=== PATIENT | male | born 1935 | race Caucasian/White ===

== ENCOUNTER → 2016-03-29 | Outpatient (CLI) | payer MEDICARE, OTHER ==
[~2016-03-29] MED LIST: AMIT PO; AMIT50TA3 PO; CALC600T37 PO; CARV12.544 PO; CHOL20007 OR; CLOP75TA28 PO; FARXIGA PO; FURO40TA4 PO; GABA300C8 PO; GLIP-116 PO; INSUINJ37 SUBCUT; KETO2CRE TOP; LEVO75TA6 PO; LINA290C OR; LIOT5TAB PO; LISI-275 PO; SIMV-13 PO; TEMA30CA PO; [UNRECOGNIZED DRUG - CODE] TOP
== END | disposition home or self-care (01) ==
LOC: Rad HDHVI 12:03
PROVIDERS: ATTEND Internal Medicine Cardiovascular Disease
DX: Z01.818 Encounter for other preprocedural examination (principal); I51.7 Cardiomegaly; R07.89 Other chest pain; R06.02 Shortness of breath; I34.2 Nonrheumatic mitral (valve) stenosis; I35.0 Nonrheumatic aortic (valve) stenosis; I25.2 Old myocardial infarction; Z95.0 Presence of cardiac pacemaker; R53.1 Weakness
CPT/HCPCS: 71020; 93306

== ENCOUNTER → 2016-04-15 | Outpatient (CLI) | payer MEDICARE, OTHER ==
[2016-04-15 16:08] LABS: Basophils # (auto) 0 uL; Basophils % (auto) 0.5 % (0.0-2.0); Eosinophils # (auto) 0.2 uL; Eosinophils % (auto) 2.8 % (0.0-7.0); Hematocrit 45.2 % (41.0-53.0); Hemoglobin 14.7 g/dL (13.5-17.5); Lymphocytes # (auto) 1.8 uL; Lymphocytes % (auto) 31.3 % (10.0-50.0); Mean Corpuscular Hemoglobin 29.4 pg (28.0-32.0); Mean Corpuscular Hgb Conc. 32.6 g/dL (32.0-36.0); Mean Corpuscular Volume 90.3 fL (80.0-100.0); Mean Platelet Volume 8.1 fL (7.4-10.4); Monocytes # (auto) 0.5 uL; Monocytes % (auto) 8.9 % (0.0-12.0); Neutrophils # (auto) 3.2 uL; Neutrophils % (auto) 56.5 % (37.0-80.0); Platelet Count (auto) 340 10^3/uL (140-450); Red Cell Distribution Width 13.9 % (11.6-16.0); White Blood Cell 5.6 10^3/uL (4.4-10.8)
[2016-04-15 16:19] LABS: Urine Bilirubin Negative (Negative); Urine Blood Negative /uL (Negative); Urine Color Yellow (Yellow); Urine Ketone Negative (Negative); Urine Nitrite Negative (Negative); Urine Urobilinogen Normal (Negative); Urine pH 6.5 (5.0-8.0)
[2016-04-15 16:27] LABS: Urine Glucose 1+ mg/dL (Normal)
[2016-04-15 16:28] LABS: Calcium 9.4 mg/dL (8.5-10.1)
[2016-04-15 16:40] LABS: Albumin 3.7 g/dL (3.4-5.0); Bilirubin, Direct 0.2 mg/dL (0-0.2)
[2016-04-15 16:49] LABS: Bilirubin, Total 0.5 mg/dL (0.2-1.0); Total Protein 7.9 g/dL (6.4-8.2)
[2016-04-15 17:19] LABS: B-Type Natriuretic Peptide 107.4 pg/mL (0-100); Temperature: 22.9 C (20.0-25.0)
[2016-04-15 17:23] LABS: BUN/Creatinine Ratio 27.4
[2016-04-15 20:20] LABS: Potassium 4.3 mmol/L (3.5-5.1)
== END | disposition home or self-care (01) ==
LOC: Rad HDHVI 10:06
PROVIDERS: ATTEND Internal Medicine Cardiovascular Disease
DX: I10 Essential (primary) hypertension (principal); E78.00 Pure hypercholesterolemia, unspecified; K74.1 Hepatic sclerosis; E11.9 Type 2 diabetes mellitus without complications; R97.20 Elevated prostate specific antigen [PSA]; R53.81 Other malaise; E03.9 Hypothyroidism, unspecified; D64.9 Anemia, unspecified; E55.9 Vitamin D deficiency, unspecified; N39.0 Urinary tract infection, site not specified
CPT/HCPCS: 36415; 80048; 80061; 80076; 81003; 82306; 83036; 83880; 84153; 84403; 84443; 85025

== ENCOUNTER → 2016-10-13 | Outpatient (CLI) | payer MEDICARE ==
[~2016-10-13] MED LIST changes: +CYANOCOBALAMIN (B-12) 1000 MCG/1 ML VIAL IM ONE; +CYANOCOBALAMIN (B-12) 1000 MCG/1 ML VIAL ONE; +GABA-497 PO; -GABA300C8 PO
[2016-10-13 15:00] VITALS: BP 151/74
[2016-10-13 16:31] LABS: Albumin 3.4 g/dL (3.4-5.0); BUN/Creatinine Ratio 21.9; Calcium 8.3 mg/dL (8.5-10.1); Magnesium 2.3 mg/dL (1.6-2.6); Potassium 4.5 mmol/L (3.5-5.1)
[2016-10-13 16:35] LABS: Bilirubin, Total 0.6 mg/dL (0.2-1.0); Total Protein 6.7 g/dL (6.4-8.2)
[2016-10-13 16:40] LABS: Basophils # (auto) 0 uL; Basophils % (auto) 0.4 % (0.0-2.0); Eosinophils # (auto) 0.1 uL; Eosinophils % (auto) 1.5 % (0.0-7.0); Hematocrit 42.5 % (41.0-53.0); Hemoglobin 14.4 g/dL (13.5-17.5); Lymphocytes # (auto) 1.4 uL; Mean Corpuscular Hemoglobin 31.7 pg (28.0-32.0); Mean Corpuscular Hgb Conc. 33.9 g/dL (32.0-36.0); Mean Corpuscular Volume 93.4 fL (80.0-100.0); Mean Platelet Volume 7.9 fL (7.4-10.4); Monocytes # (auto) 0.5 uL; Neutrophils # (auto) 3.2 uL; Neutrophils % (auto) 61.1 % (37.0-80.0); Platelet Count (auto) 174 10^3/uL (140-450); Red Cell Distribution Width 15.1 % (11.6-16.0); White Blood Cell 5.2 10^3/uL (4.4-10.8)
[2016-10-13 17:00] VITALS: BP 165/60
[2016-10-13 17:12] LABS: B-Type Natriuretic Peptide 113.49 pg/mL (0-100)
[2016-10-13 17:27] LABS: Temperature: 23.7 C (20.0-25.0)
== END | disposition home or self-care (01) ==
LOC: CHF HDHVI 15:05
PROVIDERS: ATTEND Internal Medicine Cardiovascular Disease
DX: I11.0 Hypertensive heart disease with heart failure (principal); I50.9 Heart failure, unspecified; D64.9 Anemia, unspecified; E83.42 Hypomagnesemia; E11.9 Type 2 diabetes mellitus without complications
CPT/HCPCS: 36415; 80053; 83036; 83735; 83880; 85025; 93005; 96372; G0463; J3420

== ENCOUNTER → 2017-01-04 | Outpatient (CLI) | payer MEDICARE ==
[~2017-01-04] MED LIST changes: -CYANOCOBALAMIN (B-12) 1000 MCG/1 ML VIAL IM ONE; -CYANOCOBALAMIN (B-12) 1000 MCG/1 ML VIAL ONE; -KETO2CRE TOP; +KETO2CRE4 TOP
== END | disposition home or self-care (01) ==
LOC: Rad HDHVI 11:31
PROVIDERS: ATTEND Internal Medicine Cardiovascular Disease
DX: J90 Pleural effusion, not elsewhere classified (principal); I70.0 Atherosclerosis of aorta
CPT/HCPCS: 71020

== ENCOUNTER 2017-01-06 01:11 | Emergency (ER) | payer MEDICARE ==
[~2017-01-06] VITALS: Ht 170.2 cm; Wt 77.1 kg
[2017-01-06 03:15] LABS: Basophils # (auto) 0 uL; Basophils % (auto) 0.3 % (0.0-2.0); Eosinophils # (auto) 0.1 uL; Eosinophils % (auto) 2.5 % (0.0-7.0); Hematocrit 36.5 % (41.0-53.0); Hemoglobin 12.2 g/dL (13.5-17.5); Lymphocytes # (auto) 1.6 uL; Lymphocytes % (auto) 29.3 % (10.0-50.0); Mean Corpuscular Hemoglobin 31.4 pg (28.0-32.0); Mean Corpuscular Hgb Conc. 33.5 g/dL (32.0-36.0); Mean Corpuscular Volume 93.7 fL (80.0-100.0); Mean Platelet Volume 8.5 fL (6.9-10.8); Monocytes # (auto) 0.6 uL; Monocytes % (auto) 10.4 % (0.0-12.0); Neutrophils # (auto) 3.1 uL; Neutrophils % (auto) 57.5 % (37.0-80.0); Platelet Count (auto) 209 10^3/uL (140-450); Red Cell Distribution Width 14.6 % (11.8-14.3); White Blood Cell 5.5 10^3/uL (4.4-10.8)
[2017-01-06] MEDS ORDERED: SODIUM CHLORIDE 0.9% 1,000 ML IV ONE (03:15)
[2017-01-06 03:26] LABS: Albumin 3.3 g/dL (3.4-5.0); BUN/Creatinine Ratio 15.6; Calcium 9.1 mg/dL (8.5-10.1); Potassium 3.8 mmol/L (3.5-5.1)
[2017-01-06 03:29] LABS: Bilirubin, Total 0.7 mg/dL (0.2-1.0)
[2017-01-06 03:37] LABS: Salicylate 6.8 mg/dL (2.8-20.0)
[2017-01-06 03:40] LABS: Acetaminophen 3.7 ug/mL (10-30)
[2017-01-06] MEDS ORDERED: SODIUM CHLORIDE 0.9% 500 ML IV ONE (03:45)
[2017-01-06 03:53] LABS: Urine Bilirubin Negative (Negative); Urine Blood TRACE /uL (Negative); Urine Color Yellow (Yellow); Urine Glucose 1+ mg/dL (Normal); Urine Ketone Negative (Negative); Urine Nitrite Negative (Negative); Urine RBC 4 /hpf (0 - 3); Urine Squamous Epithelial Cell FEW /hpf (<5); Urine pH 6.5 (5.0-8.0)
[2017-01-06 04:58] VITALS: BP 115/55
== END 2017-01-06 05:16 | disposition home or self-care (01) ==
LOC: EDBD 01:11 → ER 01:13
DX: J40 Bronchitis, not specified as acute or chronic (principal); E11.65 Type 2 diabetes mellitus with hyperglycemia; R53.1 Weakness; I25.810 Atherosclerosis of coronary artery bypass graft(s) without angina pectoris; I13.0 Hypertensive heart and chronic kidney disease with heart failure and stage 1 through stage 4 chronic kidney disease, or unspecified chronic kidney disease; I50.9 Heart failure, unspecified; N18.9 Chronic kidney disease, unspecified; E11.22 Type 2 diabetes mellitus with diabetic chronic kidney disease; E78.5 Hyperlipidemia, unspecified; I25.2 Old myocardial infarction; E07.9 Disorder of thyroid, unspecified; R42 Dizziness and giddiness; Z95.0 Presence of cardiac pacemaker; Z95.1 Presence of aortocoronary bypass graft; Z79.899 Other long term (current) drug therapy
CPT/HCPCS: 36415; 71010; 80053; 80307; 80320; 80329; 81001; 85025; 93005; 96360

== ENCOUNTER → 2017-02-15 | Outpatient (CLI) | payer MEDICARE ==
[~2017-02-15] MED LIST changes: -GABA-497 PO; +GABA300C10 PO; +IOHEXOL 350 MG/ML 100ML IJ ONE
[2017-02-15 11:45] VITALS: BP 139/76
[2017-02-15 12:10] VITALS: BP 157/59
[2017-02-15 12:24] VITALS: BP 157/59
== END | disposition home or self-care (01) ==
LOC: Rad HDHVI 11:26
PROVIDERS: ATTEND Internal Medicine Cardiovascular Disease
DX: I65.23 Occlusion and stenosis of bilateral carotid arteries (principal); I65.01 Occlusion and stenosis of right vertebral artery; I63.9 Cerebral infarction, unspecified
CPT/HCPCS: 70498; 82565; 96374; G0463; Q9967

== ENCOUNTER → 2017-02-22 | Outpatient (CLI) | payer MEDICARE ==
[~2017-02-22] MED LIST changes: -IOHEXOL 350 MG/ML 100ML IJ ONE
== END | disposition home or self-care (01) ==
LOC: Rad HDHVI 13:43
PROVIDERS: ATTEND Internal Medicine Cardiovascular Disease
DX: I34.0 Nonrheumatic mitral (valve) insufficiency (principal); I50.23 Acute on chronic systolic (congestive) heart failure; I25.5 Ischemic cardiomyopathy
CPT/HCPCS: 93306; 93926

== ENCOUNTER 2017-03-28 12:08 | Inpatient (IN) | payer MEDICARE ==
[~2017-03-28] VITALS: Ht 177.8 cm; Wt 84.8 kg
[2017-03-28] MEDS ORDERED: ONDANSETRON HCL 4 MG/2 ML VIAL IV ONE (12:30)
[2017-03-28 13:19] LABS: Basophils # (auto) 0 uL; Basophils % (auto) 0.4 % (0.0-2.0); Eosinophils # (auto) 0.1 uL; Eosinophils % (auto) 1.3 % (0.0-7.0); Hematocrit 42.3 % (41.0-53.0); Hemoglobin 14.1 g/dL (13.5-17.5); Lymphocytes # (auto) 1.2 uL; Lymphocytes % (auto) 15.8 % (10.0-50.0); Mean Corpuscular Hemoglobin 31.4 pg (28.0-32.0); Mean Corpuscular Hgb Conc. 33.4 g/dL (32.0-36.0); Mean Corpuscular Volume 93.9 fL (80.0-100.0); Monocytes # (auto) 0.6 uL; Monocytes % (auto) 8.5 % (0.0-12.0); Neutrophils # (auto) 5.5 uL; Platelet Count (auto) 191 10^3/uL (140-450); Red Cell Distribution Width 14.4 % (11.8-14.3); White Blood Cell 7.5 10^3/uL (4.4-10.8)
[2017-03-28 13:33] LABS: INR 0.97 (0.9-1.15); Partial Thromboplastin Time 28.2 sec (22.64-33.71); Prothrombin Time 10.6 sec (9.37-12.3)
[2017-03-28 13:35] LABS: Albumin 3.5 g/dL (3.4-5.0); Amylase 15 U/L (25-115); Anion Gap 2 (5-15); Aspartate Aminotransferase 20 U/L (15-37); BUN/Creatinine Ratio 17.9; Blood Urea Nitrogen 25 mg/dL (7-18); Calcium 9.2 mg/dL (8.5-10.1); Carbon Dioxide 29 mmol/L (21-32); Chloride 106 mmol/L (98-107); GFR African American 63 mL/min; GFR Non-African American 52 mL/min; Glucose 249 mg/dL (74-106); Lipase 53 U/L (73-393); Sodium 137 mmol/L (136-145)
[2017-03-28 13:46] LABS: Alanine Aminotransferase 34 U/L (16-61); Alkaline Phosphatase 105 U/L (45-117); Bilirubin, Total 1.1 mg/dL (0.2-1.0); Total Protein 7.4 g/dL (6.4-8.2)
[2017-03-28] MEDS ORDERED: DEXTROSE (50%) 50ML SYRG IV PRN (15:15)
[2017-03-28] MEDS ORDERED: DOCUSATE SOD 100 MG CAP PO PRN (15:30)
[2017-03-28] MEDS ORDERED: TEMAZEPAM 15 MG CAP PO PRN (15:30)
[2017-03-28] MEDS ORDERED: MORPHINE SULFATE 4 MG/ML SYR/VIAL IV PRN (15:30)
[2017-03-28] MEDS ORDERED: ACETAMINOPHEN 325 MG TAB PO PRN (15:30)
[2017-03-28] MEDS ORDERED: HYDROcodone-ACET 5/325MG TAB PO PRN (15:30)
[2017-03-28] MEDS ORDERED: ONDANSETRON HCL 4 MG/2 ML VIAL IV PRN (15:30)
[2017-03-28] MEDS ORDERED: NITROGLYCERIN 0.4 MG SL TAB SL PRN (15:30)
[2017-03-28] MEDS: FAMOTIDINE 20 MG TAB PO SCH ×2 (16:04→22:33)
[2017-03-28 16:52] LABS: Urine Bacteria NONE SEEN /hpf (None Seen); Urine Blood 1+ /uL (Negative); Urine Specific Gravity 1.022 (1.001-1.035); Urine WBC 6 /hpf (0 - 3)
[2017-03-28] MEDS: InsuLIN REG 1unit/0.01ml Soln (100units/ml) SC SCH ×2 (17:00→22:34)
[2017-03-28] MEDS: ACCU-CHEK COMFORT CURVE STRIP VI SCH ×2 (17:19→22:25)
[2017-03-28] MEDS: glipiZIDE 5 MG TAB PO SCH (18:00)
[2017-03-28] MEDS: MORPHINE SULFATE 4 MG/ML SYR/VIAL IV PRN (18:30)
[2017-03-28] MEDS: LORazepam 2MG/ML-1ML VIAL IV PRN (19:32)
[2017-03-28 22:00] VITALS: BP 144/75
[2017-03-28] MEDS: SODIUM CHLOR 0.9% PF (SALINE LOCK) 10ML VIAL IV SCH (22:32)
[2017-03-28] MEDS: CARVEDILOL 12.5 MG TAB PO SCH (22:33)
[2017-03-28] MEDS: ATORVASTATIN 20 MG TAB PO SCH (22:33)
[2017-03-28] MEDS: CALCIUM CARB 500 MG CHEW TAB PO SCH (22:33)
[2017-03-28] MEDS: GABAPENTIN 100 MG CAP PO SCH (22:33)
[2017-03-28] MEDS: ASCORBIC ACID 500 MG TAB PO SCH (22:34)
[2017-03-29] MEDS: MORPHINE SULFATE 4 MG/ML SYR/VIAL IV PRN (00:24)
[2017-03-29] MEDS: SODIUM CHLOR 0.9% PF (SALINE LOCK) 10ML VIAL IV SCH ×3 (05:18→21:50)
[2017-03-29] MEDS: ACCU-CHEK COMFORT CURVE STRIP VI SCH ×4 (05:37→21:50)
[2017-03-29] MEDS: glipiZIDE 5 MG TAB PO SCH ×2 (05:37→17:27)
[2017-03-29] MEDS: InsuLIN REG 1unit/0.01ml Soln (100units/ml) SC SCH ×4 (05:38→21:57)
[2017-03-29 06:00] VITALS: BP 140/69
[2017-03-29] MEDS: LEVOTHYROXINE SODIUM 25 MCG TAB PO SCH (06:06)
[2017-03-29] MEDS: GABAPENTIN 100 MG CAP PO SCH ×3 (06:06→21:48)
[2017-03-29 06:22] LABS: Basophils # (auto) 0 uL; Basophils % (auto) 0.4 % (0.0-2.0); Eosinophils # (auto) 0.1 uL; Hematocrit 40.6 % (41.0-53.0); Hemoglobin 13.4 g/dL (13.5-17.5); Lymphocytes # (auto) 1.5 uL; Lymphocytes % (auto) 25.5 % (10.0-50.0); Mean Corpuscular Hemoglobin 31.4 pg (28.0-32.0); Mean Corpuscular Hgb Conc. 33.1 g/dL (32.0-36.0); Mean Corpuscular Volume 94.9 fL (80.0-100.0); Monocytes # (auto) 0.6 uL; Monocytes % (auto) 10.6 % (0.0-12.0); Neutrophils # (auto) 3.8 uL; Neutrophils % (auto) 62.5 % (37.0-80.0); Nucleated Red Blood Cells % 0.1 %; Platelet Count (auto) 187 10^3/uL (140-450); Red Blood Cells 4.28 10^6/uL (4.5-5.90); Red Cell Distribution Width 14.3 % (11.8-14.3); White Blood Cell 6.1 10^3/uL (4.4-10.8)
[2017-03-29 06:39] LABS: Albumin 3.3 g/dL (3.4-5.0); BUN/Creatinine Ratio 18.7; Calcium 9.1 mg/dL (8.5-10.1); Potassium 4.5 mmol/L (3.5-5.1)
[2017-03-29 06:42] LABS: Bilirubin, Total 0.9 mg/dL (0.2-1.0); Total Protein 7.1 g/dL (6.4-8.2)
[2017-03-29 09:00] VITALS: BP 170/62
[2017-03-29] MEDS: LOSARTAN POTASSIUM 50 MG TAB PO SCH (09:35)
[2017-03-29] MEDS: CHOLECALCIFEROL (VITD3) 1,000 UNIT TAB PO SCH (09:36)
[2017-03-29] MEDS: FAMOTIDINE 20 MG TAB PO SCH ×2 (09:36→21:48)
[2017-03-29] MEDS: MULTIPLE VITAMIN TAB PO SCH (09:36)
[2017-03-29] MEDS: ZINC SULFATE 220 MG CAP PO SCH (09:36)
[2017-03-29] MEDS: CALCIUM CARB 500 MG CHEW TAB PO SCH ×2 (09:36→21:48)
[2017-03-29] MEDS: ASCORBIC ACID 500 MG TAB PO SCH ×2 (09:36→21:48)
[2017-03-29] MEDS: DULoxetine HCL 30 MG CAP PO SCH (09:37)
[2017-03-29] MEDS: FUROSEMIDE 40 MG TAB PO SCH (09:37)
[2017-03-29] MEDS: CARVEDILOL 12.5 MG TAB PO SCH ×2 (09:38→21:49)
[2017-03-29] MEDS: LORazepam 2MG/ML-1ML VIAL IV PRN ×2 (09:48→21:52)
[2017-03-29 13:00] VITALS: BP 104/48
[2017-03-29 17:00] VITALS: BP 99/57
[2017-03-29 19:15] LABS: INR 0.98 (0.9-1.15); Partial Thromboplastin Time 28.2 sec (22.64-33.71); Prothrombin Time 10.7 sec (9.37-12.3)
[2017-03-29] MEDS: ATORVASTATIN 20 MG TAB PO SCH (21:48)
[2017-03-29 22:00] VITALS: BP 126/46
[2017-03-30 05:21] VITALS: BP 123/60
[2017-03-30] MEDS: GABAPENTIN 100 MG CAP PO SCH ×3 (06:17→22:07)
[2017-03-30] MEDS: LEVOTHYROXINE SODIUM 25 MCG TAB PO SCH (06:18)
[2017-03-30] MEDS: SODIUM CHLOR 0.9% PF (SALINE LOCK) 10ML VIAL IV SCH ×3 (06:18→22:04)
[2017-03-30] MEDS: glipiZIDE 5 MG TAB PO SCH ×2 (06:19→18:05)
[2017-03-30] MEDS: InsuLIN REG 1unit/0.01ml Soln (100units/ml) SC SCH ×4 (06:19→22:36)
[2017-03-30] MEDS: ACCU-CHEK COMFORT CURVE STRIP VI SCH ×4 (06:20→22:00)
[2017-03-30 08:00] VITALS: BP 94/59
[2017-03-30] MEDS ORDERED: ceFAZolin 1GM/50ML 50 ML IV ONE (09:51)
[2017-03-30] MEDS ORDERED: ROCURONIUM 10MG/ML 10ML VIAL IV ONE (09:56)
[2017-03-30] MEDS ORDERED: SUCCINYLCHOLINE CHLORIDE 20 MG/ML 10ML VIAL IV ONE (09:58)
[2017-03-30] MEDS ORDERED: MIDAZOLAM HCL 1MG/1ML-2 ML VIAL ONE (09:59)
[2017-03-30] MEDS: CALCIUM CARB 500 MG CHEW TAB PO SCH ×2 (10:00→22:07)
[2017-03-30] MEDS: ZINC SULFATE 220 MG CAP PO SCH (10:00)
[2017-03-30] MEDS: DULoxetine HCL 30 MG CAP PO SCH (10:00)
[2017-03-30] MEDS: ASCORBIC ACID 500 MG TAB PO SCH ×2 (10:00→22:06)
[2017-03-30] MEDS: CARVEDILOL 12.5 MG TAB PO SCH ×2 (10:00→22:06)
[2017-03-30] MEDS: FUROSEMIDE 40 MG TAB PO SCH (10:00)
[2017-03-30] MEDS: MULTIPLE VITAMIN TAB PO SCH (10:00)
[2017-03-30] MEDS: CHOLECALCIFEROL (VITD3) 1,000 UNIT TAB PO SCH (10:00)
[2017-03-30] MEDS: FAMOTIDINE 20 MG TAB PO SCH ×2 (10:00→22:06)
[2017-03-30] MEDS ORDERED: ETOMIDATE (2MG/ML) 20ML VIAL IV ONE (10:01)
[2017-03-30] MEDS ORDERED: fentaNYL CITRATE 100 MCG/2 ML VL ONE (10:14)
[2017-03-30] MEDS ORDERED: hydrALAZINE HCL 20 MG/ML VL IV PRN (10:15)
[2017-03-30] MEDS ORDERED: ONDANSETRON HCL 4 MG/2 ML VIAL IV ONE (10:15)
[2017-03-30] MEDS ORDERED: NALOXONE HCL 0.4 MG/ML VIAL IV PRN (10:15)
[2017-03-30] MEDS ORDERED: ePHEDrine SULFATE 50 MG/ML AMP IV PRN (10:15)
[2017-03-30] MEDS ORDERED: MORPHINE SULFATE 4 MG/ML SYR/VIAL IV PRN (10:15)
[2017-03-30] MEDS ORDERED: ACCU-CHEK COMFORT CURVE STRIP VI ONE (10:15)
[2017-03-30] MEDS ORDERED: GLYCOPYRROLATE 0.2 MG/ML 1ML VIAL ONE (10:38)
[2017-03-30] MEDS ORDERED: NEOSTIGMINE 1 MG/ML INJ (10mg/10ML VIAL) ONE (10:38)
[2017-03-30 12:00] VITALS: BP 146/76
[2017-03-30] MEDS: LOSARTAN POTASSIUM 50 MG TAB PO SCH (13:03)
[2017-03-30 17:00] VITALS: BP 146/77
[2017-03-30] MEDS: MORPHINE SULFATE 4 MG/ML SYR/VIAL IV PRN (18:05)
[2017-03-30 20:00] VITALS: BP 139/75
[2017-03-30 22:00] VITALS: BP 139/75
[2017-03-30] MEDS: ATORVASTATIN 20 MG TAB PO SCH (22:06)
[2017-03-30] MEDS: LORazepam 2MG/ML-1ML VIAL IV PRN (22:07)
[2017-03-31] MEDS: MORPHINE SULFATE 4 MG/ML SYR/VIAL IV PRN ×2 (02:51→10:42)
[2017-03-31 05:00] VITALS: BP 128/65
[2017-03-31] MEDS: ACCU-CHEK COMFORT CURVE STRIP VI SCH ×2 (06:41→11:30)
[2017-03-31] MEDS: LEVOTHYROXINE SODIUM 25 MCG TAB PO SCH (06:41)
[2017-03-31] MEDS: GABAPENTIN 100 MG CAP PO SCH ×2 (06:41→14:17)
[2017-03-31] MEDS: SODIUM CHLOR 0.9% PF (SALINE LOCK) 10ML VIAL IV SCH ×2 (06:41→14:16)
[2017-03-31] MEDS: glipiZIDE 5 MG TAB PO SCH (06:41)
[2017-03-31] MEDS: InsuLIN REG 1unit/0.01ml Soln (100units/ml) SC SCH ×2 (06:42→13:46)
[2017-03-31 08:00] VITALS: BP 114/72
[2017-03-31] MEDS: CALCIUM CARB 500 MG CHEW TAB PO SCH (09:24)
[2017-03-31] MEDS: CARVEDILOL 12.5 MG TAB PO SCH (09:25)
[2017-03-31] MEDS: FUROSEMIDE 40 MG TAB PO SCH (09:25)
[2017-03-31] MEDS: CHOLECALCIFEROL (VITD3) 1,000 UNIT TAB PO SCH (09:26)
[2017-03-31] MEDS: MULTIPLE VITAMIN TAB PO SCH (09:26)
[2017-03-31] MEDS: DULoxetine HCL 30 MG CAP PO SCH (09:26)
[2017-03-31] MEDS: ASCORBIC ACID 500 MG TAB PO SCH (09:26)
[2017-03-31] MEDS: ZINC SULFATE 220 MG CAP PO SCH (09:27)
[2017-03-31] MEDS: LOSARTAN POTASSIUM 50 MG TAB PO SCH (09:27)
[2017-03-31] MEDS: FAMOTIDINE 20 MG TAB PO SCH (09:27)
[2017-03-31 13:00] VITALS: BP 156/71
[2017-03-31 16:40] VITALS: BP 146/81
== END 2017-03-31 16:40 | disposition home or self-care (01) | DRG 418 ==
LOC: EDBD 12:08 → ER 12:08 → TELE 12:09 → TELE-WESTW 20:31
PROVIDERS: ADMIT Internal Medicine; ATTEND Internal Medicine Cardiovascular Disease
PROC: 0FT44ZZ Resection of Gallbladder, Percutaneous Endoscopic Approach (ICD-10-PCS; principal; 2017-03-30 09:56)
DX: K80.00 Calculus of gallbladder with acute cholecystitis without obstruction (principal); I50.42 Chronic combined systolic (congestive) and diastolic (congestive) heart failure; E11.21 Type 2 diabetes mellitus with diabetic nephropathy; E11.51 Type 2 diabetes mellitus with diabetic peripheral angiopathy without gangrene; I13.0 Hypertensive heart and chronic kidney disease with heart failure and stage 1 through stage 4 chronic kidney disease, or unspecified chronic kidney disease; J98.11 Atelectasis; K76.0 Fatty (change of) liver, not elsewhere classified; I25.10 Atherosclerotic heart disease of native coronary artery without angina pectoris; K44.9 Diaphragmatic hernia without obstruction or gangrene; E03.9 Hypothyroidism, unspecified; E11.65 Type 2 diabetes mellitus with hyperglycemia; E78.5 Hyperlipidemia, unspecified; N40.0 Benign prostatic hyperplasia without lower urinary tract symptoms; N18.3 Chronic kidney disease, stage 3 (moderate); F41.9 Anxiety disorder, unspecified; E66.9 Obesity, unspecified; I70.8 Atherosclerosis of other arteries; J44.9 Chronic obstructive pulmonary disease, unspecified; K40.90 Unilateral inguinal hernia, without obstruction or gangrene, not specified as recurrent; Z95.1 Presence of aortocoronary bypass graft; Z95.0 Presence of cardiac pacemaker; I25.2 Old myocardial infarction; Z83.3 Family history of diabetes mellitus; Z79.4 Long term (current) use of insulin; Z82.49 Family history of ischemic heart disease and other diseases of the circulatory system; Z68.26 Body mass index [BMI] 26.0-26.9, adult
CPT/HCPCS: 36415; 71045; 74176; 76705; 80053; 81001; 82150; 82247; 82962; 83036; 83605; 83690; 83880; 84443; 84484; 85025; 85610; 85730; 86850; 86900; 86901; 87040; 87086; 87088; 87186; 93005; 96374; J0330; J0690; J1815; J2250; J2405

== ENCOUNTER 2017-04-02 12:30 | Emergency (ER) | payer MEDICARE ==
[~2017-04-02] VITALS: Ht 175.3 cm; Wt 90.7 kg
[2017-04-02] MEDS ORDERED: SODIUM CHLORIDE 0.9% 500 ML IVB ONE (13:16)
[2017-04-02 13:41] LABS: Basophils # (auto) 0 uL; Basophils % (auto) 0.3 % (0.0-2.0); Eosinophils # (auto) 0.1 uL; Eosinophils % (auto) 1.4 % (0.0-7.0); Hematocrit 43.2 % (41.0-53.0); Hemoglobin 14.6 g/dL (13.5-17.5); Lymphocytes # (auto) 0.9 uL; Lymphocytes % (auto) 14.8 % (10.0-50.0); Mean Corpuscular Hemoglobin 31.6 pg (28.0-32.0); Mean Corpuscular Hgb Conc. 33.7 g/dL (32.0-36.0); Mean Corpuscular Volume 93.9 fL (80.0-100.0); Monocytes # (auto) 0.5 uL; Monocytes % (auto) 7.6 % (0.0-12.0); Neutrophils # (auto) 4.6 uL; Neutrophils % (auto) 75.9 % (37.0-80.0); Platelet Count (auto) 205 10^3/uL (140-450); Red Cell Distribution Width 13.7 % (11.8-14.3)
[2017-04-02 14:08] LABS: Albumin 3.6 g/dL (3.4-5.0); BUN/Creatinine Ratio 25.5; Bilirubin, Total 1.2 mg/dL (0.2-1.0); Calcium 9.3 mg/dL (8.5-10.1); Magnesium 2.4 mg/dL (1.6-2.6); Potassium 4.4 mmol/L (3.5-5.1); Total Protein 7.9 g/dL (6.4-8.2)
[2017-04-02 14:24] LABS: Urine Bacteria NONE SEEN /hpf (None Seen); Urine Blood TRACE /uL (Negative); Urine Mucus FEW (None Seen); Urine Specific Gravity 1.017 (1.001-1.035); Urine WBC 2 /hpf (0 - 3)
[2017-04-02 14:40] LABS: Alcohol, Urine < 3.0 mg/dL (0-5); Amphetamine Screen, Urine NEGATIVE (NEGATIVE); Barbiturate Scree,Urine NEGATIVE (NEGATIVE); Benzodiazephine Screen, Urine POSITIVE (NEGATIVE); Cannabinoid Screen, Urine NEGATIVE (NEGATIVE); Cocaine Screen, Urine NEGATIVE (NEGATIVE); Opiate Scree,Urine POSITIVE (NEGATIVE); Phencyclidine Screen, Urine NEGATIVE (NEGATIVE)
[2017-04-02 14:40] LABS: INR 0.99 (0.9-1.15); Partial Thromboplastin Time 26.8 sec (22.64-33.71); Prothrombin Time 10.8 sec (9.37-12.3)
[2017-04-02 15:01] VITALS: BP 158/76
[2017-04-02] MEDS ORDERED: ONDANSETRON HCL 4 MG/2 ML VIAL IV ONE (15:30)
== END 2017-04-02 16:14 | disposition home or self-care (01) ==
LOC: EDBD 12:30 → EDUNIT# 12:30 → ER 12:30
DX: E11.65 Type 2 diabetes mellitus with hyperglycemia (principal); K31.84 Gastroparesis; E11.21 Type 2 diabetes mellitus with diabetic nephropathy; I25.2 Old myocardial infarction; I13.0 Hypertensive heart and chronic kidney disease with heart failure and stage 1 through stage 4 chronic kidney disease, or unspecified chronic kidney disease; N18.9 Chronic kidney disease, unspecified; I50.9 Heart failure, unspecified; Z95.1 Presence of aortocoronary bypass graft; Z79.899 Other long term (current) drug therapy; Z90.49 Acquired absence of other specified parts of digestive tract; Z79.4 Long term (current) use of insulin; Z98.61 Coronary angioplasty status; R47.89 Other speech disturbances; R11.2 Nausea with vomiting, unspecified
CPT/HCPCS: 36415; 70450; 71045; 80053; 80307; 81001; 83605; 83735; 84443; 84484; 85025; 85610; 85730; 87040; 87077; 87186; 93005; 94761; 96361; 96374; 99285; J2405; J7030

== ENCOUNTER 2017-04-21 18:10 | Inpatient (IN) | payer MEDICARE ==
[~2017-04-21] VITALS: Ht 177.8 cm; Wt 84.4 kg
[2017-04-21] MEDS ORDERED: ONDANSETRON HCL 4 MG/2 ML VIAL ONE (18:56)
[2017-04-21] MEDS ORDERED: ONDANSETRON HCL 4 MG/2 ML VIAL IV ONE (19:00)
[2017-04-21] MEDS ORDERED: SODIUM CHLORIDE 0.9% 1,000 ML IV ONE (19:00)
[2017-04-21 19:06] LABS: Basophils # (auto) 0 uL; Basophils % (auto) 0.2 % (0.0-2.0); Eosinophils # (auto) 0 uL; Hematocrit 37.1 % (41.0-53.0); Hemoglobin 12.4 g/dL (13.5-17.5); Lymphocytes # (auto) 0.3 uL; Lymphocytes % (auto) 3.9 % (10.0-50.0); Mean Corpuscular Hemoglobin 31.6 pg (28.0-32.0); Mean Corpuscular Hgb Conc. 33.5 g/dL (32.0-36.0); Mean Corpuscular Volume 94.2 fL (80.0-100.0); Monocytes # (auto) 0.2 uL; Monocytes % (auto) 2.9 % (0.0-12.0); Neutrophils # (auto) 7.3 uL; Platelet Count (auto) 185 10^3/uL (140-450); Red Blood Cells 3.94 10^6/uL (4.5-5.90); Red Cell Distribution Width 14.1 % (11.8-14.3); White Blood Cell 7.8 10^3/uL (4.4-10.8)
[2017-04-21 19:18] LABS: INR 1.05 (0.9-1.15); Partial Thromboplastin Time 26.1 sec (22.64-33.71); Prothrombin Time 11.4 sec (9.37-12.3)
[2017-04-21] MEDS ORDERED: PROMETHAZINE HCL 25 MG/ML 1ML IV ONE (19:30)
[2017-04-21 19:42] LABS: Albumin 3.1 g/dL (3.4-5.0); BUN/Creatinine Ratio 17.3; Bilirubin, Total 0.8 mg/dL (0.2-1.0); Calcium 8.7 mg/dL (8.5-10.1); Potassium 4.3 mmol/L (3.5-5.1); Total Protein 7.2 g/dL (6.4-8.2)
[2017-04-21] MEDS ORDERED: ONDANSETRON HCL 4 MG/2 ML VIAL IV PRN (21:30)
[2017-04-21] MEDS ORDERED: DEXTROSE (50%) 50ML SYRG IV PRN (21:30)
[2017-04-21] MEDS ORDERED: NITROGLYCERIN 0.4 MG SL TAB SL PRN (21:30)
[2017-04-21] MEDS ORDERED: ACETAMINOPHEN 500 MG TAB PO PRN (21:30)
[2017-04-21] MEDS ORDERED: MORPHINE SULFATE 4 MG/ML SYR/VIAL IV PRN (21:30)
[2017-04-21] MEDS: GABAPENTIN 300 MG CAP PO SCH (22:00)
[2017-04-21] MEDS: ACCU-CHEK COMFORT CURVE STRIP VI SCH (22:00)
[2017-04-21] MEDS: InsuLIN REG 1unit/0.01ml Soln (100units/ml) SC SCH (22:00)
[2017-04-21 23:45] VITALS: BP 104/59
[2017-04-22] MEDS: TEMAZEPAM 15 MG CAP PO PRN ×2 (01:23→22:21)
[2017-04-22 05:00] VITALS: BP 109/50
[2017-04-22] MEDS: LEVOTHYROXINE SODIUM 25 MCG TAB PO SCH (06:19)
[2017-04-22] MEDS: GABAPENTIN 300 MG CAP PO SCH ×3 (06:19→22:05)
[2017-04-22 06:22] LABS: Basophils # (auto) 0 uL; Basophils % (auto) 0.2 % (0.0-2.0); Eosinophils # (auto) 0 uL; Hematocrit 32.1 % (41.0-53.0); Hemoglobin 10.7 g/dL (13.5-17.5); Lymphocytes # (auto) 0.7 uL; Lymphocytes % (auto) 8.4 % (10.0-50.0); Mean Corpuscular Hemoglobin 31.2 pg (28.0-32.0); Mean Corpuscular Hgb Conc. 33.4 g/dL (32.0-36.0); Mean Corpuscular Volume 93.4 fL (80.0-100.0); Monocytes # (auto) 0.8 uL; Monocytes % (auto) 9.3 % (0.0-12.0); Neutrophils # (auto) 7.3 uL; Neutrophils % (auto) 82.1 % (37.0-80.0); Platelet Count (auto) 171 10^3/uL (140-450); Red Blood Cells 3.44 10^6/uL (4.5-5.90); Red Cell Distribution Width 14.2 % (11.8-14.3); White Blood Cell 8.8 10^3/uL (4.4-10.8)
[2017-04-22 06:32] LABS: BUN/Creatinine Ratio 16.5; Calcium 8.6 mg/dL (8.5-10.1); Potassium 4.2 mmol/L (3.5-5.1)
[2017-04-22] MEDS: ACCU-CHEK COMFORT CURVE STRIP VI SCH ×4 (06:39→22:16)
[2017-04-22] MEDS: InsuLIN REG 1unit/0.01ml Soln (100units/ml) SC SCH ×4 (06:39→22:22)
[2017-04-22 09:20] VITALS: BP 99/55
[2017-04-22] MEDS: CARVEDILOL 12.5 MG TAB PO SCH ×2 (10:00→22:00)
[2017-04-22] MEDS ORDERED: AZITHROMYCIN 500MG/ 250ML 250 ML IV SCH (10:00)
[2017-04-22] MEDS: CLOPIDOGREL BISULFATE 75 MG TAB PO SCH (10:17)
[2017-04-22] MEDS: FUROSEMIDE 40 MG/4 ML VIAL IV SCH (10:18)
[2017-04-22] MEDS: cefTRIAXone 1GM/10ml IVPUSH 10 ML IV SCH (10:18)
[2017-04-22 12:35] VITALS: BP 105/49
[2017-04-22 16:56] VITALS: BP 121/62
[2017-04-22 17:46] LABS: Urine Bacteria FEW /hpf (None Seen); Urine Blood 1+ /uL (Negative); Urine WBC 444 /hpf (0 - 3); Urine WBC Clumps PRESENT /hpf (None Seen)
[2017-04-22] MEDS: HYDROcodone-ACET 5/325MG TAB PO PRN (19:51)
[2017-04-22 20:00] VITALS: BP 107/54
[2017-04-22 22:00] VITALS: BP 107/54
[2017-04-22] MEDS: AMITRIPTYLINE HCL 25 MG TAB PO SCH (22:05)
[2017-04-23 05:00] VITALS: BP 115/54
[2017-04-23 05:41] LABS: Albumin 2.7 g/dL (3.4-5.0); BUN/Creatinine Ratio 18.7; Bilirubin, Total 0.3 mg/dL (0.2-1.0); Calcium 8.8 mg/dL (8.5-10.1); Potassium 4.3 mmol/L (3.5-5.1); Total Protein 6.5 g/dL (6.4-8.2)
[2017-04-23] MEDS: LEVOTHYROXINE SODIUM 25 MCG TAB PO SCH (06:39)
[2017-04-23] MEDS: ACCU-CHEK COMFORT CURVE STRIP VI SCH ×4 (06:39→22:15)
[2017-04-23] MEDS: GABAPENTIN 300 MG CAP PO SCH ×3 (06:39→22:10)
[2017-04-23] MEDS: InsuLIN REG 1unit/0.01ml Soln (100units/ml) SC SCH ×4 (06:48→22:32)
[2017-04-23 09:00] VITALS: BP 135/66
[2017-04-23] MEDS: CARVEDILOL 12.5 MG TAB PO SCH ×2 (10:06→22:10)
[2017-04-23] MEDS: CLOPIDOGREL BISULFATE 75 MG TAB PO SCH (10:06)
[2017-04-23] MEDS: FUROSEMIDE 40 MG/4 ML VIAL IV SCH (10:07)
[2017-04-23] MEDS: cefTRIAXone 1GM/10ml IVPUSH 10 ML IV SCH (10:07)
[2017-04-23 13:00] VITALS: BP 113/63
[2017-04-23] MEDS: HYDROcodone-ACET 5/325MG TAB PO PRN (20:24)
[2017-04-23 21:59] VITALS: BP 134/62
[2017-04-23] MEDS: TEMAZEPAM 15 MG CAP PO PRN (22:10)
[2017-04-23] MEDS: AMITRIPTYLINE HCL 25 MG TAB PO SCH (22:11)
[2017-04-24 05:46] VITALS: BP 122/64
[2017-04-24] MEDS: GABAPENTIN 300 MG CAP PO SCH ×2 (06:38→14:18)
[2017-04-24] MEDS: LEVOTHYROXINE SODIUM 25 MCG TAB PO SCH (06:38)
[2017-04-24] MEDS: ACCU-CHEK COMFORT CURVE STRIP VI SCH ×2 (06:38→12:10)
[2017-04-24] MEDS: InsuLIN REG 1unit/0.01ml Soln (100units/ml) SC SCH ×2 (07:32→12:10)
[2017-04-24 09:00] VITALS: BP 119/66
[2017-04-24] MEDS: cefTRIAXone 1GM/10ml IVPUSH 10 ML IV SCH (09:54)
[2017-04-24] MEDS: FUROSEMIDE 40 MG/4 ML VIAL IV SCH (09:54)
[2017-04-24] MEDS: CLOPIDOGREL BISULFATE 75 MG TAB PO SCH (09:55)
[2017-04-24] MEDS: CARVEDILOL 12.5 MG TAB PO SCH (09:55)
[2017-04-24 13:00] VITALS: BP 112/65
[2017-04-24 15:33] VITALS: BP 112/65
[2017-04-24 17:00] VITALS: BP 148/69
== END 2017-04-24 16:45 | disposition home or self-care (01) | DRG 291 ==
LOC: EDUNIT# 18:10 → EDBD 18:10 → ER 18:12 → TELE 18:13 → TELE-WESTW 23:06 → WEST WING 04-24 16:12
PROVIDERS: ADMIT Nurse Practitioner Family; ATTEND Internal Medicine Cardiovascular Disease
DX: I13.0 Hypertensive heart and chronic kidney disease with heart failure and stage 1 through stage 4 chronic kidney disease, or unspecified chronic kidney disease (principal); I50.43 Acute on chronic combined systolic (congestive) and diastolic (congestive) heart failure; E11.22 Type 2 diabetes mellitus with diabetic chronic kidney disease; E11.65 Type 2 diabetes mellitus with hyperglycemia; E87.1 Hypo-osmolality and hyponatremia; Z98.61 Coronary angioplasty status; D64.9 Anemia, unspecified; N18.9 Chronic kidney disease, unspecified; E78.5 Hyperlipidemia, unspecified; I25.10 Atherosclerotic heart disease of native coronary artery without angina pectoris; I25.5 Ischemic cardiomyopathy; F41.9 Anxiety disorder, unspecified; Z79.4 Long term (current) use of insulin; Z79.899 Other long term (current) drug therapy; J44.9 Chronic obstructive pulmonary disease, unspecified; Z82.49 Family history of ischemic heart disease and other diseases of the circulatory system; Z95.0 Presence of cardiac pacemaker; Z83.3 Family history of diabetes mellitus; Z95.1 Presence of aortocoronary bypass graft; I25.2 Old myocardial infarction; Z90.49 Acquired absence of other specified parts of digestive tract
CPT/HCPCS: 36415; 71045; 80048; 80053; 81001; 82962; 83880; 84484; 85025; 85610; 85730; 87081; 93005; 96361; 96374; 96375; J1815; J2405

== ENCOUNTER → 2017-05-15 | Outpatient (CLI) | payer MEDICARE ==
[~2017-05-15] MED LIST changes: +READI-CAT 2 (BARIUM SULF)(VANILLA SMOOTHIE) 450ML ONE
== END | disposition home or self-care (01) ==
LOC: LAB 10:44
PROVIDERS: ATTEND Internal Medicine Cardiovascular Disease
DX: I51.7 Cardiomegaly (principal); K40.90 Unilateral inguinal hernia, without obstruction or gangrene, not specified as recurrent; J44.9 Chronic obstructive pulmonary disease, unspecified; I12.9 Hypertensive chronic kidney disease with stage 1 through stage 4 chronic kidney disease, or unspecified chronic kidney disease; E11.22 Type 2 diabetes mellitus with diabetic chronic kidney disease; N18.9 Chronic kidney disease, unspecified; E29.1 Testicular hypofunction; Z79.899 Other long term (current) drug therapy; Z79.4 Long term (current) use of insulin
CPT/HCPCS: 36415; 74176; 84403

== ENCOUNTER → 2017-06-07 | Outpatient (CLI) | payer MEDICARE ==
[~2017-06-07] MED LIST changes: +CARVEDILOL 3.125 MG TAB ONE; +MVI in SODIUM CHLORIDE 0.9% 1,010 ML ONE; +ONDANSETRON HCL 4 MG/2 ML VIAL ONE; +PROMETHAZINE HCL 25 MG/ML 1ML IM ONE; -READI-CAT 2 (BARIUM SULF)(VANILLA SMOOTHIE) 450ML ONE
[2017-06-07] MEDS: ONDANSETRON HCL 4 MG/2 ML VIAL IV ONE (15:10)
[2017-06-07] MEDS: MVI in SODIUM CHLORIDE 0.9% 500 ML IVB ONE (15:12)
[2017-06-07] MEDS: CARVEDILOL 12.5 MG TAB PO ONE (15:30)
[2017-06-07 16:03] LABS: Basophils # (auto) 0 uL; Basophils % (auto) 0.3 % (0.0-2.0); Eosinophils # (auto) 0 uL; Eosinophils % (auto) 0.4 % (0.0-7.0); Hematocrit 39.3 % (41.0-53.0); Hemoglobin 12.9 g/dL (13.5-17.5); Lymphocytes % (auto) 11.1 % (10.0-50.0); Mean Corpuscular Hemoglobin 31.8 pg (28.0-32.0); Mean Corpuscular Hgb Conc. 32.9 g/dL (32.0-36.0); Mean Corpuscular Volume 96.7 fL (80.0-100.0); Monocytes # (auto) 0.7 uL; Neutrophils # (auto) 7.1 uL; Neutrophils % (auto) 80.2 % (37.0-80.0); Platelet Count (auto) 275 10^3/uL (140-450); Red Blood Cells 4.07 10^6/uL (4.5-5.90); Red Cell Distribution Width 17.8 % (11.8-14.3); White Blood Cell 8.8 10^3/uL (4.4-10.8)
[2017-06-07 16:07] LABS: Calcium 9.2 mg/dL (8.5-10.1)
[2017-06-07 16:11] LABS: Albumin 3.7 g/dL (3.4-5.0); BUN/Creatinine Ratio 12.2; Magnesium 2.2 mg/dL (1.6-2.6)
[2017-06-07 16:15] LABS: Bilirubin, Total 1.3 mg/dL (0.2-1.0); Total Protein 7.8 g/dL (6.4-8.2)
[2017-06-07] MEDS: PROMETHAZINE HCL 25 MG/ML 1ML ONE (17:03)
[2017-06-07 17:05] VITALS: BP 141/70
== END | disposition home or self-care (01) ==
LOC: CHF HDHVI 14:56
PROVIDERS: ATTEND Internal Medicine Cardiovascular Disease
DX: E86.0 Dehydration (principal); R42 Dizziness and giddiness; R11.0 Nausea; D64.9 Anemia, unspecified; I12.9 Hypertensive chronic kidney disease with stage 1 through stage 4 chronic kidney disease, or unspecified chronic kidney disease; N18.9 Chronic kidney disease, unspecified; E11.22 Type 2 diabetes mellitus with diabetic chronic kidney disease; E78.5 Hyperlipidemia, unspecified; I25.10 Atherosclerotic heart disease of native coronary artery without angina pectoris; I25.2 Old myocardial infarction; Z79.4 Long term (current) use of insulin; Z79.899 Other long term (current) drug therapy
CPT/HCPCS: 36415; 80053; 82962; 83735; 85025; 96365; 96366; 96372; 96375; G0463; J2405

== ENCOUNTER → 2017-06-09 | Outpatient (CLI) | payer MEDICARE ==
[~2017-06-09] MED LIST changes: -CARVEDILOL 3.125 MG TAB ONE; -MVI in SODIUM CHLORIDE 0.9% 1,010 ML ONE; +ONDANSETRON HCL 4 MG/2 ML VIAL IV ONE; +PROMETHAZINE HCL 25 MG/ML 1ML ONE
[2017-06-09 15:30] VITALS: BP 173/79
[2017-06-09 16:40] VITALS: BP 160/72
== END | disposition home or self-care (01) ==
LOC: CHF HDHVI 15:32
PROVIDERS: ATTEND Internal Medicine Cardiovascular Disease
DX: R11.2 Nausea with vomiting, unspecified (principal); I13.0 Hypertensive heart and chronic kidney disease with heart failure and stage 1 through stage 4 chronic kidney disease, or unspecified chronic kidney disease; E11.22 Type 2 diabetes mellitus with diabetic chronic kidney disease; N18.3 Chronic kidney disease, stage 3 (moderate); I50.43 Acute on chronic combined systolic (congestive) and diastolic (congestive) heart failure; I25.10 Atherosclerotic heart disease of native coronary artery without angina pectoris; J44.9 Chronic obstructive pulmonary disease, unspecified; E78.5 Hyperlipidemia, unspecified; I25.2 Old myocardial infarction; F41.9 Anxiety disorder, unspecified; F32.9 Major depressive disorder, single episode, unspecified; Z90.49 Acquired absence of other specified parts of digestive tract; Z98.61 Coronary angioplasty status; Z95.1 Presence of aortocoronary bypass graft; Z95.0 Presence of cardiac pacemaker; Z79.4 Long term (current) use of insulin; Z79.899 Other long term (current) drug therapy; Z87.01 Personal history of pneumonia (recurrent); Z87.891 Personal history of nicotine dependence
CPT/HCPCS: 82962; 96372; 96374; G0463; J2405; J2550

== ENCOUNTER → 2017-06-20 | Outpatient (CLI) | payer MEDICARE ==
[~2017-06-20] MED LIST changes: +MVI in SODIUM CHLORIDE 0.9% 1,010 ML ONE; -ONDANSETRON HCL 4 MG/2 ML VIAL IV ONE; -PROMETHAZINE HCL 25 MG/ML 1ML IM ONE; -PROMETHAZINE HCL 25 MG/ML 1ML ONE
[2017-06-20 16:13] LABS: Magnesium 2.2 mg/dL (1.6-2.6); Potassium 4.2 mmol/L (3.5-5.1)
[2017-06-20 17:01] VITALS: BP 183/80
== END | disposition home or self-care (01) ==
LOC: CHF HDHVI 14:39
PROVIDERS: ATTEND Internal Medicine Cardiovascular Disease
DX: I13.0 Hypertensive heart and chronic kidney disease with heart failure and stage 1 through stage 4 chronic kidney disease, or unspecified chronic kidney disease (principal); E11.22 Type 2 diabetes mellitus with diabetic chronic kidney disease; N18.3 Chronic kidney disease, stage 3 (moderate); I50.43 Acute on chronic combined systolic (congestive) and diastolic (congestive) heart failure; R11.0 Nausea; E86.0 Dehydration; R63.0 Anorexia; E11.21 Type 2 diabetes mellitus with diabetic nephropathy; F41.9 Anxiety disorder, unspecified; I25.10 Atherosclerotic heart disease of native coronary artery without angina pectoris; J44.9 Chronic obstructive pulmonary disease, unspecified; E78.5 Hyperlipidemia, unspecified; F32.9 Major depressive disorder, single episode, unspecified; I25.2 Old myocardial infarction; Z79.4 Long term (current) use of insulin; Z79.899 Other long term (current) drug therapy; Z87.891 Personal history of nicotine dependence; Z87.01 Personal history of pneumonia (recurrent); Z95.1 Presence of aortocoronary bypass graft; Z95.0 Presence of cardiac pacemaker; Z90.49 Acquired absence of other specified parts of digestive tract; Z98.61 Coronary angioplasty status; I65.23 Occlusion and stenosis of bilateral carotid arteries; Z86.73 Personal history of transient ischemic attack (TIA), and cerebral infarction without residual deficits; E03.9 Hypothyroidism, unspecified
CPT/HCPCS: 36415; 82565; 83735; 84132; 84520; 96365; 96366; 96375; G0463; J2405; J3411; J3475